=== PATIENT | male | born 1945 | race Hispanic/Latino ===

== ENCOUNTER 2020-12-24 22:37 | Emergency (ER) | payer OTHER, BC ==
[2020-12-24] MEDS ORDERED: NA CHLORIDE 0.9% 1,000 ML ONE (23:46)
[2020-12-24] MEDS ORDERED: CEFTRIAXONE/SWI 1gm 1 GM/10 ML SYR ONE (23:46)
[2020-12-24 23:48] LABS: Absolute Lymphocytes (CBC) 1.3 K/uL (0.7-4.9); Basophils % 1.2 % (0-1.3); Lymphocytes % 27.1 % (15.3-44.8); MPV 9.6 fL (7.6-11.3); RBC Red Blood Cell Count 3.91 M/uL (4.33-5.43)
[2020-12-25 00:12] LABS: Albumin 3.8 g/dL (3.4-5.0); Bilirubin Direct 0.2 mg/dL (0-0.2); Bilirubin Total 0.6 mg/dL (0.2-1.0); Potassium 4.5 mmol/L (3.5-5.1); Protein, Total 7.1 g/dL (6.4-8.2)
[2020-12-25] MEDS ORDERED: CIPROFLOXACIN HCL 500 MG TAB ONE (00:32)
--- NOTE | 2020-12-25 02:08 | ER ---
Nurse's Notes [facility] Name: Huan Goldberg Age: 75 yrs Sex: Male : 1945 Arrival Date: 12/24/2020 Time: 22:41 Bed 7 Private MD: Diagnosis: Hematuria-GROSS, Xarelto, Plavix;Type 1 diabetes mellitus;Urinary tract infection, site not specified Presentation: 12/24 22:53 Chief complaint: Patient states: bleeding with urination that started today at 5 PM, ca1 reports burning with urination, also has a hx of prostate CA, denies back pain or fever. Coronavirus screen: Client denies travel out of the [place] in the last 14 days. Ebola Screen: Patient negative for fever greater than or equal to 101.5 degrees Fahrenheit, and additional compatible Ebola Virus Disease symptoms Patient denies exposure to infectious person. Patient denies travel to an Ebola-affected area in the 21 days before illness onset. No symptoms or risks identified at this time. Initial Sepsis Screen: Does the patient meet any 2 criteria? No. Patient's initial sepsis screen is negative. Does the patient have a suspected source of infection? Yes: Dysuria/Frequency/Urgency/UTI. Risk Assessment: Do you want to hurt yourself or someone else? Patient reports no desire to harm self or others. Onset of symptoms was December 24, 2020. 22:53 Method Of Arrival: Ambulatory ca1 22:53 Acuity: IRWIN 3 ca1 Triage Assessment: 23:34 General: Behavior is calm, cooperative. ak2 Historical: - Allergies: 22:56 No Known Allergies; ca1 - PMHx: 22:56 Diabetes - IDDM; Hypertension; prostate CA; metastatic melanoma; ca1 - PSHx: 22:56 CABG; ca1 - Immunization history:: Adult Immunizations up to date. - Social history:: Smoking status: Patient denies any tobacco usage or history of. - Family history:: not pertinent. Screenin:33 Abuse screen: Denies threats or abuse. Denies injuries from another. Nutritional ak2 screening: No deficits noted. Tuberculosis screening: No symptoms or risk factors identified. Fall Risk None identified. Assessment: 23:34 General: Appears in no apparent distress. Pain: Complains of pain in pelvis. Neuro: No ak2 deficits noted. Cardiovascular: No deficits noted. Respiratory: No deficits noted. : Reports pain with urination. Vital Signs: 22:53 BP 120 / 81; Pulse 80; Resp 16; Temp 97.3; Pulse Ox 99% on R/A; Weight 73.48 kg; Height ca1 5 ft. 7 in. (170.18 cm); Pain 0/10; 12/25 02:20 BP 115 / 75; Pulse 75; Resp 18; Pulse Ox 100% on R/A; ak2 12/24 22:53 Body Mass Index 25.37 (73.48 kg, 170.18 cm) ca1 ED Course: 12/24 22:41 Patient arrived in ED. es 22:55 Triage completed. ca1 22:56 Arm band placed on. ca1 22:57 Kyaw Arteaga MD is Attending Physician. cortez 23:18 Ladonna Patel, RN is Primary Nurse. ea 23:33 Patient has correct armband on for positive identification. ak2 23:33 No provider procedures requiring assistance completed. ak2 23:34 Inserted saline lock: 20 gauge in left antecubital area, using aseptic technique. Blood ea collected. 12/25 00:45 CT Abd/Pelvis - IV Contrast Only In Process Unspecified. EDNV 02:06 Markell Kelyl MD is Referral Physician. cortez 02:07 Live Velez MD is Referral Physician. [facility] Administered Medications: 12/24 23:30 Drug: NS 0.9% 1000 ml Route: IV; Rate: 1 bolus; Site: right antecubital; ak2 23:30 Drug: Rocephin (cefTRIAXone) 1 grams Route: IV; Rate: per protocol; Site: right ak2 antecubital; 12/25 01:04 Drug: Cipro (ciprofloxacin) 500 mg Route: PO; ea 02:03 Drug: Flomax (tamsulosin) 0.4 mg Route: PO; ak2 02:20 Not Given (Patient Refused): LanTUS (insulin glargine) 35 units Sub-Q once ak2 Outcome: 02:07 Discharge ordered by . cortez 02:25 Discharged to home ak2 02:25 Discharged to home ambulatory. 02:25 Condition: good 02:25 Discharge instructions given to patient, family, Prescriptions given X 02:25 Patient left the ED. ak2 Signatures: Dispatcher [employer] EDNV Kyaw Arteaga MD MD cha Salyer, Edna es Patel, Ladonna, RN RN Lizzy Ayala RN RN Manuel Shipley
--- NOTE | 2020-12-25 02:08 | EDPHYS ---
Physician Documentation [facility] Name: Huan Goldberg Age: 75 yrs Sex: Male : 1945 Arrival Date: 12/24/2020 Time: 22:41 Bed 7 Private MD: ED Physician Kyaw Arteaga HPI: 12/24 23:51 This 75 yrs old Male presents to ER via Ambulatory with complaints of Rectal cortez Bleeding. 23:51 The patient presents with urinary symptoms, urinary frequency. Onset: The cortez symptoms/episode began/occurred yesterday. Modifying factors: The symptoms are alleviated by nothing, the symptoms are aggravated by nothing. Associated signs and symptoms: The patient has no apparent associated signs or symptoms. Severity of symptoms: At their worst the symptoms were mild, in the emergency department the symptoms are unchanged. The patient has not experienced similar symptoms in the past. Historical: - Allergies: 22:56 No Known Allergies; ca1 - PMHx: 22:56 Diabetes - IDDM; Hypertension; prostate CA; metastatic melanoma; ca1 - PSHx: 22:56 CABG; ca1 - Immunization history:: Adult Immunizations up to date. - Social history:: Smoking status: Patient denies any tobacco usage or history of. - Family history:: not pertinent. ROS: 23:51 Constitutional: Negative for fever, chills, and weight loss, Eyes: Negative for injury, cortez pain, redness, and discharge, ENT: Negative for injury, pain, and discharge, Neck: Negative for injury, pain, and swelling, Cardiovascular: Negative for chest pain, palpitations, and edema, Respiratory: Negative for shortness of breath, cough, wheezing, and pleuritic chest pain, Back: Negative for injury and pain, MS/Extremity: Negative for injury and deformity, Skin: Negative for injury, rash, and discoloration, Neuro: Negative for headache, weakness, numbness, tingling, and seizure, Psych: Negative for depression, anxiety, suicide ideation, homicidal ideation, and hallucinations, Allergy/Immunology: Negative for hives, rash, and allergies, Endocrine: Negative for neck swelling, polydipsia, polyuria, polyphagia, and marked weight changes, Hematologic/Lymphatic: Negative for swollen nodes, abnormal bleeding, and unusual bruising. 23:51 Respiratory: Negative for cough. 23:51 Abdomen/GI: Positive for abdominal pain, of the suprapubic area. 23:51 : Positive for small amounts, hematuria. Exam: 23:51 Constitutional: This is a well developed, well nourished patient who is awake, alert, cortez and in no acute distress. Head/Face: Normocephalic, atraumatic. Eyes: Pupils equal round and reactive to light, extra-ocular motions intact. Lids and lashes normal. Conjunctiva and sclera are non-icteric and not injected. Cornea within normal limits. Periorbital areas with no swelling, redness, or edema. ENT: Nares patent. No nasal discharge, no septal abnormalities noted. Tympanic membranes are normal and external auditory canals are clear. Oropharynx with no redness, swelling, or masses, exudates, or evidence of obstruction, uvula midline. Mucous membranes moist. Neck: Trachea midline, no thyromegaly or masses palpated, and no cervical lymphadenopathy. Supple, full range of motion without nuchal rigidity, or vertebral point tenderness. No Meningismus. Chest/axilla: Normal chest wall appearance and motion. Nontender with no deformity. No lesions are appreciated. Cardiovascular: Regular rate and rhythm with a normal S1 and S2. No gallops, murmurs, or rubs. Normal PMI, no JVD. No pulse deficits. Respiratory: Lungs have equal breath sounds bilaterally, clear to auscultation and percussion. No rales, rhonchi or wheezes noted. No increased work of breathing, no retractions or nasal flaring. Back: No spinal tenderness. No costovertebral tenderness. Full range of motion. Male : Normal genitalia with no discharge or lesions. Skin: Warm, dry with normal turgor. Normal color with no rashes, no lesions, and no evidence of cellulitis. MS/ Extremity: Pulses equal, no cyanosis. Neurovascular intact. Full, normal range of motion. Neuro: Awake and alert, GCS 15, oriented to person, place, time, and situation. Cranial nerves II-XII grossly intact. Motor strength 5/5 in all extremities. Sensory grossly intact. Cerebellar exam normal. Normal gait. Psych: Awake, alert, with orientation to person, place and time. Behavior, mood, and affect are within normal limits. 23:51 Abdomen/GI: Inspection: abdomen appears normal, Bowel sounds: normal, Palpation: mild abdominal tenderness, in the suprapubic area, Liver: no appreciated palpable abnormalities, Hernia: not appreciated. Vital Signs: 22:53 BP 120 / 81; Pulse 80; Resp 16; Temp 97.3; Pulse Ox 99% on R/A; Weight 73.48 kg; Height ca1 5 ft. 7 in. (170.18 cm); Pain 0/10; 12/25 02:20 BP 115 / 75; Pulse 75; Resp 18; Pulse Ox 100% on R/A; ak2 12/24 22:53 Body Mass Index 25.37 (73.48 kg, 170.18 cm) ca1 MDM: 12/24 23:02 Patient medically screened. [facility] 23:55 Differential diagnosis: nonspecific abdominal pain, UTI, urinary retention, cortez prostatitis, urethritis. Data reviewed: vital signs, nurses notes, lab test result(s), EKG, radiologic studies. Data interpreted: online marketing strategist: rate is 80 beats/min, rhythm is regular. Counseling: I had a detailed discussion with the patient and/or guardian regarding: the historical points, exam findings, and any diagnostic results supporting the discharge/admit diagnosis, lab results, radiology results. 12/24 23:02 Order name: Basic Metabolic Panel [facility] 12/24 23: Order name: CBC with Diff [facility] 12/24 23:02 Order name: Hepatic Function; Complete Time: 01:29 [facility] 12/24 23:02 Order name: Lipase; Complete Time: 01:29 [facility] 12/24 23:02 Order name: Basic Metabolic Panel; Complete Time: 01:29 EDFL 12/24 23:02 Order name: CT Abd/Pelvis - IV Contrast Only [facility] 12/24 23:02 Order name: CBC with Automated Diff; Complete Time: 23:59 EDFL 12/25 01:27 Order name: COVID-19 : Document "Date of Symptom Onset" if Symptomatic. [facility] 12/24 23:02 Order name: IV Saline Lock; Complete Time: 23:33 [facility] 12/24 23:02 Order name: Labs collected and sent; Complete Time: 23:33 [facility] 12/24 23:02 Order name: Urine Dipstick-Ancillary (obtain specimen) cortez Administered Medications: 23:30 Drug: NS 0.9% 1000 ml Route: IV; Rate: 1 bolus; Site: right antecubital; ak 23:30 Drug: Rocephin (cefTRIAXone) 1 grams Route: IV; Rate: per protocol; Site: right ak2 antecubital; 12/25 01:04 Drug: Cipro (ciprofloxacin) 500 mg Route: PO; ea 02:03 Drug: Flomax (tamsulosin) 0.4 mg Route: PO; ak2 02:20 Not Given (Patient Refused): LanTUS (insulin glargine) 35 units Sub-Q once ak2 Disposition: 12/25/20 02:07 Discharged to Home. Impression: Hematuria - GROSS, Xarelto, Plavix, Type 1 diabetes mellitus, Urinary tract infection, site not specified. - Condition is Fair. - Discharge Instructions: Dysuria, Hematuria, Adult, Urinary Tract Infection, Adult, Urinary Tract Infection, Adult, [id number], Type 1 Diabetes Mellitus, Self Care, Adult, [id number]. - Prescriptions for Tylenol- Codeine #3 300-30 mg Oral Tablet - take 2 tablets by ORAL route every 4-6 hours As needed; 20 tablet. Flomax 0.4 mg Oral Capsule, Sust. Release 24 hr - take 1 capsule by ORAL route once daily 1/2 hour following the same meal each day; 30 capsule. Cipro 500 mg Oral Tablet - take 1 tablet by ORAL route every 12 hours for 7 days; 14 tablet. - Medication Reconciliation Form, Thank You Letter, Antibiotic Education, Prescription Opioid Use form. - Follow up: Private Physician; When: 1 - 2 days; Reason: Recheck today's complaints, Continuance of care, Re-evaluation by your physician. Follow up: Markell Kelly MD; When: 2 - 3 days; Reason: Recheck today's complaints, Continuance of care, Re-evaluation by your physician. Follow up: Live Velez MD; When: 1 - 2 days; Reason: Recheck today's complaints, Continuance of care, Re-evaluation by your physician. - Problem is new. - Symptoms have improved. Signatures: Dispatcher [employer] EDMS Kyaw Arteaga MD MD cha Antunez, Elena, RN Lizzy Henning ea, RN RN ca1 [place], Anthony ri2 Corrections: (The following items were deleted from the chart) 01:56 01:28 CORONAVIRUS ordered. EDFL EDMS 02:07 02:07 12/25/2020 02:07 Discharged to Home. Impression: Hematuria - GROSS, Xarelto, cortez Plavix; Type 1 diabetes mellitus. Condition is Fair. Forms are Medication Reconciliation Form, Thank You Letter, Antibiotic Education, Prescription Opioid Use. Follow up: Private Physician; When: 1 - 2 days; Reason: Recheck today's complaints, Continuance of care, Re-evaluation by your physician. Follow up: Markell Kelly; When: 2 - 3 days; Reason: Recheck today's complaints, Continuance of care, Re-evaluation by your physician. Follow up: Live Velez; When: 1 - 2 days; Reason: Recheck today's complaints, Continuance of care, Re-evaluation by your physician. Problem is new. Symptoms have improved. [facility] 02:25 02:07 12/25/2020 02:07 Discharged to Home. Impression: Hematuria - GROSS, Xarelto, ak2 Plavix; Type 1 diabetes mellitus; Urinary tract infection, site not specified. Condition is Fair. Forms are Medication Reconciliation Form, Thank You Letter, Antibiotic Education, Prescription Opioid Use. Follow up: Private Physician; When: 1 - 2 days; Reason: Recheck today's complaints, Continuance of care, Re-evaluation by your physician. Follow up: Markell Kelly; When: 2 - 3 days; Reason: Recheck today's complaints, Continuance of care, Re-evaluation by your physician. Follow up: Live Velez; When: 1 - 2 days; Reason: Recheck today's complaints, Continuance of care, Re-evaluation by your physician. Problem is new. Symptoms have improved. [facility]
[2020-12-25] MEDS ORDERED: TAMSULOSIN 0.4 MG SR CAP ONE (02:17)
[2020-12-25 02:32] VITALS: TEMP 97.3
[2020-12-25 02:33] VITALS: BP 115/75; O2SAT 100
--- NOTE | 2020-12-25 10:31 | RAD REPORT ---
EXAM DESCRIPTION: CT - Abdomen Pelvis W Contrast - 12/25/2020 6:20 am CLINICAL HISTORY: ABD PAIN COMPARISON: None Available. TECHNIQUE: CT of the abdomen and pelvis performed following IV administration of iodinated contras t. This exam was performed according to our departmental dose-optimization program, which includes au tomated exposure control, adjustment of the mA and/or kV according to patient size and/or use of iter ative reconstruction technique. FINDINGS: Lung Bases: Cardiomegaly. Prior median sternotomy. Minimal dependent atelectasis. Bones: Multilevel degenerative endplate spondylosis and facet arthropathy. Abdomen: Liver: The liver has normal size and density. No intrahepatic biliary dilatation. Gallbladder: No calcified gallstones. Spleen, Pancreas, and Adrenal Glands: The spleen, pancreas, and adrenal glands are unremarkable. Kidneys: No hydronephrosis or obstructing calculus. Small bilateral renal cysts. Vasculature: Aortoiliac atherosclerosis. IVC is unremarkable. The portal vein is patent. The proxim al visceral and renal arteries are patent. Stomach: The stomach and duodenum have normal course. Other: No free intraperitoneal air. No free fluid or lymphadenopathy. Pelvis: Bladder: Rounded structure in the base of the urinary bladder. This measures 3.6 x 2.3 cm. Bowel: No dilated loops of large or small bowel. Scattered diverticula colon. Appendix: Normal appendix. Pelvis: Small left fat-containing inguinal hernia. Enlarged prostate. IMPRESSION: 1. No acute inflammatory or obstructive process identified. 2. Rounded structure in the base of the urinary bladder measuring 3.6 x 2.3 cm. This may represent a mass. Hemorrhagic or inflammatory debris could also produce this. Follow-up CT urogram recommended for more complete characterization. Ultimately, cystoscopy may be required for definitive characteriz ation. 3. Enlarged prostate. 4. Diverticulosis without evidence of acute diverticulitis. 5. Cardiomegaly. Electronically signed by: Vasu Chong 12/25/2020 1:14 AM CDT Due to temporary technical issues with the PACS/Fluency reporting system, reports are being signed by the in house radiologist without review as a courtesy to ensure prompt reporting. The interpreting r adiologist is fully responsible for the content of the report.
== END 2020-12-25 02:25 | disposition home or self-care (01) ==
LOC: ER 22:37
DX: N39.0 Urinary tract infection, site not specified (principal); E10.9 Type 1 diabetes mellitus without complications; I10 Essential (primary) hypertension; Z79.01 Long term (current) use of anticoagulants; Z20.822 Contact with and (suspected) exposure to COVID-19; Z95.1 Presence of aortocoronary bypass graft
CPT/HCPCS: 85025; 80048; 36415; 80076; 83690; 74177; U0003; Q9967; J0696; J7030; 96374; 99284